=== PATIENT | male | born 1990 | race Caucasian/White ===

== ENCOUNTER 2018-09-17 16:49 | Emergency (ER) | payer BC ==
[~2018-09-17] VITALS: Ht 175.3 cm; Wt 74.8 kg
[2018-09-17] MEDS ORDERED: NKM (17:03)
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
[2018-09-17] MEDS ORDERED: IBUPROFEN600 MG ORAL (17:33)
[2018-09-17] MEDS ORDERED: ROBAXIN-750750 MG PO (17:33)
[2018-09-17 17:45] VITALS: BP 116/83
--- NOTE | 2018-09-17 17:46 | NUR ---
ED Nurse Note: Patient is being discharged cleared by ER provider. discharge instruction with prescription given to the patient, patient verbalized understanding. patient a/o x4, ambulated out of Ed with steady gait, with all belongings. ID band removed.
[2018-09-17 17:47] VITALS: BP 116/83
== END 2018-09-17 17:47 | disposition home or self-care (01) ==
LOC: EMR 17:20
DX: S16.1XXA Strain of muscle, fascia and tendon at neck level, initial encounter (principal); S50.02XA Contusion of left elbow, initial encounter; V43.52XA Car driver injured in collision with other type car in traffic accident, initial encounter; Y92.410 Unspecified street and highway as the place of occurrence of the external cause
CPT/HCPCS: 99282